=== PATIENT | female | born 1975 | race American Indian/Alaskan Native ===

== ENCOUNTER 2016-12-12 09:51 | Outpatient (CLI) | payer BC ==
--- NOTE | 2016-12-12 11:06 | Mammography Report ---
Bilateral mammogram and right breast ultrasound: The patient presents with a palpable mass in her right breast. A marker is placed over the area of concern and routine obtained in addition to spot compression imaging. There is a focal area of asymmetric density corresponding to the marker in the inferior lateral portion of the breast measuring just under 2 cm in size. Subcentimeter sized nodule is also identified in the superior breast but somewhat less well-defined. The remainder the breast pattern bilaterally is generally fatty replaced and unremarkable. Ultrasound over the palpable mass demonstrates a well-defined anechoic lesion measuring 1.8 cm having characteristics consistent with simple cysts. In the 12:00 location 3 cm from the nipple there is also an anechoic nodule measuring 6 mm corresponding to the smaller nodule on the mammogram. No other findings noted. CAD used. Impression: Right breast cyst corresponding to palpable. Recommendation: Clinical followup. Patient has been informed of finding. Age-appropriate screening mammogram. BI-RADS CATEGORY: 2 = Benign ACR BI-RADS MAMMOGRAPHIC CODES: 0 = Needs additional imaging evaluation; 1 = Negative; 2 = Benign; 3 = Probably benign; 4 = Suspicious; 5 = Malignant; 6 = Known biopsy-proven malignancy COMMENT: 1. Dense breast tissue, i.e., adenosis, fibrocystic changes, etc., may obscure an underlying neoplasm. 2. Approximately 10% of cancers are not detected with mammography. 3. A negative mammography report should not delay biopsy if a clinically suspicious mass is present.
== END 2016-12-12 09:52 | disposition home or self-care (01) ==
LOC: SPVWC 09:51
PROVIDERS: ATTEND Internal Medicine
DX: R92.8 Other abnormal and inconclusive findings on diagnostic imaging of breast (principal); R92.2 Inconclusive mammogram
CPT/HCPCS: 76642; G0204; 77066